=== PATIENT | female | born 1970 | race Caucasian/White ===

== ENCOUNTER 2022-12-12 13:03 | Outpatient (CLI) | payer BC, SELFPAY ==
--- NOTE | ~2022-12-12 | CT_ITS ---
EXAMINATION: CT abdomen pelvis wo con DATE: 12/12/2022 13:31 INDICATION: Bilateral flank pain. TECHNIQUE: Computed tomography (CT) of the abdomen and pelvis was performed without intravenous contr ast. Automated exposure control and iterative reconstruction technique were employed. The dose-length product was 1070.18 mGy-cm. COMPARISON: None. FINDINGS: The visualized portions of the lung bases demonstrate mild atelectasis. No pleural effusion . The heart size is normal. There are coronary artery calcifications. No pericardial effusion. There is a small sliding hiatal hernia. The liver is normal. There are changes of cholecystectomy. Calcific ations in the spleen are consistent with old granulomatous disease. The pancreas and adrenal glands a re normal. There are 5 stones in right kidney measuring up to 5 mm. There is a 3 mm stone in left kid tammy. There are no dilated loops of bowel. There is diverticulosis of the colon without evidence of di verticulitis. The appendix is normal. There are no dilated loops of bowel. There are no pathologicall y enlarged lymph nodes. There is no free intraperitoneal fluid. There is mild thoracic and lumbar spo ndylosis. IMPRESSION: 1. Bilateral nonobstructing kidney stones. 2. Small sliding hiatal hernia. Reviewed, dictated and finalized at location A.
== END 2022-12-12 13:04 | disposition home or self-care (01) ==
PROVIDERS: PCP Nurse Practitioner Adult Health
DX: K44.9 Diaphragmatic hernia without obstruction or gangrene (principal); N20.0 Calculus of kidney
CPT/HCPCS: 74176